=== PATIENT | male | born 1985 | race Hispanic/Latino ===

== ENCOUNTER 2019-05-04 19:46 | Emergency (ER) | payer OTHER ==
[2019-05-04] MEDS ORDERED: ONDANSETRON HCL 4 MG/2 ML VIAL ONE (20:26)
[2019-05-04] MEDS ORDERED: MORPHINE SULFATE 2 MG/ML 1ML SYG ONE (20:27)
[2019-05-04] MEDS ORDERED: ERYTHROMYCIN BASE 0.5% OPHTH OINT 1 GM TUBE ONE (21:07)
[2019-05-04] MEDS ORDERED: FLUORESCEIN SODIUM 1 STRIP STRIP ONE (21:07)
[2019-05-04] MEDS ORDERED: TETRACAINE HCL 0.5% 4 ML OPHTH SOLN ONE (21:08)
[2019-05-04] MEDS ORDERED: TETANUS/DIPHTHERIA TOXOID [ADULT] 0.5 ML VIAL IM ONE (21:19)
== END 2019-05-04 22:09 | disposition home or self-care (01) ==
LOC: EDH 19:46
DX: T20.20XA Burn of second degree of head, face, and neck, unspecified site, initial encounter (principal); T21.12XA Burn of first degree of abdominal wall, initial encounter; S05.02XA Injury of conjunctiva and corneal abrasion without foreign body, left eye, initial encounter; S05.01XA Injury of conjunctiva and corneal abrasion without foreign body, right eye, initial encounter; T31.0 Burns involving less than 10% of body surface; X12.XXXA Contact with other hot fluids, initial encounter; Y93.89 Activity, other specified; Y92.89 Other specified places as the place of occurrence of the external cause; Y99.8 Other external cause status
CPT/HCPCS: 16000; 90471; 90714; 96374; 96375; 99284; J2405